=== PATIENT | female | born 1945 | race Caucasian/White ===

== ENCOUNTER 2017-01-04 19:33 | Inpatient (IN) | payer MEDICAID, MEDICARE ==
[~2017-01-04] VITALS: Ht 160 cm; Wt 40.8 kg
[2017-01-04 19:35] VITALS: BP_SYST 102
[2017-01-04] MEDS ORDERED: NACL 0.9% 1,000 ML IV ONE (20:35)
[2017-01-04 21:10] LABS: HEMATOCRIT 32.1 % (36-48); HEMOGLOBIN 10.7 g/dL (12.0-16.0); MEAN CORPUSCULAR HEMOGLOBIN 32 pg (27-31); MEAN CORPUSCULAR HGB CONC 33 % (32-36); MEAN CORPUSCULAR VOLUME 96 fL (79.0-98.0); PLATELET COUNT (AUTO) 268 K/uL (130-430); RED BLOOD CELL COUNT(AUTO) 3.36 MIL/uL (4.2-6.2); RED CELL DISTRIBUTION WIDTH 14.7 % (9.0-15.0)
[2017-01-04 21:30] LABS: CALCIUM 9.6 mg/dL (8.4-11.0); CREATININE 1.22 mg/dL (0.55-1.30); POTASSIUM 4.7 mmol/L (3.5-5.1)
[2017-01-04 21:38] LABS: ALBUMIN 3.4 g/dL (3.4-4.8); TOTAL BILIRUBIN 0.2 mg/dL (0.0-1.0)
[2017-01-04 21:39] LABS: ATYPICAL LYMPHOCYTES % 0 % (0-0); BAND % (MANUAL) 0 % (0-6); BASOPHILS % (MANUAL) 0 % (0-2); EOSINOPHILS % (MANUAL) 0 % (0-7); LYMPHOCYTES % (MANUAL) 3 % (20-46); MONOCYTES % (MANUAL) 1 % (0-11)
[2017-01-04] MEDS ORDERED: NS 500 ML IV ONE (21:45)
[2017-01-04 21:47] LABS: INR 1.1 (0.8-1.2); PROTHROMBIN TIME 11.5 SECS (9.5-12.5)
[2017-01-04] MEDS ORDERED: ACET-2165 PO (22:49)
[2017-01-04] MEDS ORDERED: ASCO500T20 PO (22:51)
[2017-01-04] MEDS ORDERED: BACL10TA PO ×2 (22:52→22:53)
[2017-01-04] MEDS ORDERED: DULR10 RC (22:54)
[2017-01-04] MEDS ORDERED: CARB1TAB21 PO (22:56)
[2017-01-04] MEDS ORDERED: DILT120C89 PO (22:57)
[2017-01-04] MEDS ORDERED: DOCU-144 PO (22:58)
[2017-01-04] MEDS ORDERED: VENL75CA PO (22:59)
[2017-01-04] MEDS ORDERED: HEPA500014 SUBCUT (23:00)
[2017-01-04] MEDS ORDERED: HYDR-4037 PO (23:01)
[2017-01-04] MEDS ORDERED: IBUP-1969 PO (23:02)
[2017-01-04] MEDS ORDERED: LACT10SO66 PO (23:03)
[2017-01-04] MEDS ORDERED: MAGN400O4 PO (23:04)
[2017-01-04] MEDS ORDERED: MULT-300 PO (23:05)
[2017-01-04] MEDS ORDERED: PIMA17TA PO (23:07)
[2017-01-04] MEDS ORDERED: ROPI4TAB3 PO (23:09)
[2017-01-04] MEDS ORDERED: FAMO20TA8 PO (23:09)
[2017-01-04] MEDS ORDERED: ALPR0.2583 PO (23:10)
[2017-01-04] MEDS ORDERED: LORazepam 2 MG/ML VIAL (FOR ER USE) IVP ONE (23:45)
[2017-01-05] VITALS (7 sets, daily range): BP systolic 104–127
[2017-01-05] LABS: BILIRUBIN,URINE NEGATIVE (NEGATIVE); BLOOD, URINE 3+ (NEGATIVE); CLARITY/URINE CLOUDY (CLEAR); COLOR,URINE YELLOW (YELLOW); GLUCOSE,URINE NEGATIVE (NEGATIVE); KETONES,URINE NEGATIVE (NEGATIVE); LEUKOCYTE ESTERASE ,URINE 2+ (NEGATIVE); NITRITE, URINE NEGATIVE (NEGATIVE); PH,URINE 5.5 (5.0-8.0); PROTEIN URINE 2+ (NEGATIVE)
[2017-01-05] MEDS ORDERED: KCL 20 mEq in D5/0.45NS 1000mL 1,000 ML IV SCH
[2017-01-05 00:06] LABS: BACTERIA,URINE MODERATE /HPF (None Seen); RBC,URINE >100 /HPF (0-3); WBC,URINE >100 /HPF (0-3)
[2017-01-05 00:14] LABS: BARBITURATE, URINE NEGATIVE (NEG <=200); BENZODIAZEPINE, URINE POSITIVE (NEG <=150); CANNABINOID, URINE NEGATIVE (NEG <=50); COCAINE, URINE NEGATIVE (NEG <=150); METHAMPHETAMINES SCREEN,URINE NEGATIVE (NEG <=500); OPIATE, URINE NEGATIVE (NEG <=100); PHENCYCLIDINE SCREEN,URINE NEGATIVE (NEG <=25); UR TRICYCLIC ANTIDEPRESSANTS NEGATIVE (NEG <=300); URINE AMPHETAMINE NEGATIVE (NEG <=500); URINE METHADONE NEGATIVE (NEG <=200); URINE OXYCODONE SCREEN NEGATIVE (NEG <=100); URINE PROPOXYPHENE SCREEN NEGATIVE (NEG <=300)
[2017-01-05] MEDS ORDERED: CEFEPIME 1 GM/VIAL (MAXIPIME) ONE (01:16)
[2017-01-05] MEDS: CEFEPIME 1 GM in D5W 50 ML IV SCH ×2 (01:27→12:34)
[2017-01-05 06:52] LABS: BASOPHILS % (AUTO) 0.3 % (0.0-2.0); EOSINOPHILS % (AUTO) 0.2 % (0.0-4.0); HEMATOCRIT 27.9 % (36-48); HEMOGLOBIN 9.4 g/dL (12.0-16.0); LYMPHOCYTES % (AUTO) 14.4 % (20.5-51.5); MEAN CORPUSCULAR HEMOGLOBIN 32 pg (27-31); MEAN CORPUSCULAR HGB CONC 34 % (32-36); MEAN CORPUSCULAR VOLUME 95 fL (79.0-98.0); MONOCYTES # (AUTO) 0.3 K/uL (0.0-1.0); MONOCYTES % (AUTO) 4.4 % (1.7-9.3); NEUTROPHILS # (AUTO) 5.4 K/uL (1.8-7.7); NEUTROPHILS % (AUTO) 80.7 % (40.0-70.0); PLATELET COUNT (AUTO) 235 K/uL (130-430); RED BLOOD CELL COUNT(AUTO) 2.94 MIL/uL (4.2-6.2); RED CELL DISTRIBUTION WIDTH 14.7 % (9.0-15.0); WHITE BLOOD COUNT (AUTO) 6.7 K/uL (4.8-10.8)
[2017-01-05 07:21] LABS: ALBUMIN 3.1 g/dL (3.4-4.8); CALCIUM 9.1 mg/dL (8.4-11.0); POTASSIUM 4.4 mmol/L (3.5-5.1); TOTAL BILIRUBIN 0.3 mg/dL (0.0-1.0); TOTAL PROTEIN, SERUM 6.3 g/dL (6.4-8.3)
[2017-01-05] MEDS ORDERED: CARBIDOPA/LEVODOPA 25/100 MG TABLET PO SCH (08:30)
[2017-01-05] MEDS ORDERED: BISACODYL 10 MG/SUPPOSITORY RC PRN (08:30)
[2017-01-05] MEDS ORDERED: MILK OF MAGNESIA 30 ML UDC PO PRN (08:30)
[2017-01-05] MEDS ORDERED: ACETAMINOPHEN 325 MG TABLET PO PRN (08:30)
[2017-01-05] MEDS ORDERED: hydrALAZINE HCL 10 MG TABLET PO PRN (08:30)
[2017-01-05] MEDS ORDERED: LACTULOSE 20 GM/30 ML UDC PO PRN (08:30)
[2017-01-05] MEDS: FAMOTIDINE 20 MG TABLET PO SCH ×2 (10:28→22:12)
[2017-01-05] MEDS: DOCUSATE SODIUM 100 MG CAPSULE PO SCH ×2 (10:29→22:12)
[2017-01-05] MEDS: MULTIVITS,CA,MINERALS/IRON/FA 1 TABLET PO SCH (10:29)
[2017-01-05] MEDS: ASCORBIC ACID 500 MG TABLET PO SCH (10:30)
[2017-01-05] MEDS: BACLOFEN 10 MG TABLET PO PRN (10:30)
[2017-01-05] MEDS: DILTIAZEM HCL 120 MG CAP.SR.24H PO SCH (10:30)
[2017-01-05] MEDS: HEPARIN SODIUM,PORCINE 5000 UNITS/ML VIAL SUBCUT SCH ×2 (10:33→22:10)
[2017-01-05] MEDS ORDERED: LevALBUTEROL HCL 1.25 MG/0.5 ML *CONC.* VIAL.NEB (XOPENEX CONC.) INH PRN (14:45)
[2017-01-05] MEDS ORDERED: LevALBUTEROL HCL 1.25 MG/0.5 ML *CONC.* VIAL.NEB (XOPENEX CONC.) INH SCH (15:00)
[2017-01-05] MEDS: ALPRAZolam 0.25 MG TABLET PO PRN (15:34)
[2017-01-05] MEDS: IBUPROFEN 600 MG TABLET PO PRN (15:34)
[2017-01-05] MEDS ORDERED: LevALBUTEROL HCL 1.25 MG/0.5 ML *CONC.* VIAL.NEB (XOPENEX CONC.) INH ONE (15:42)
[2017-01-05] MEDS: IPRATROPIUM BROM 0.5 MG/2.5 ML VIAL.NEB (ATROVENT) INH SCH (19:00)
[2017-01-05] MEDS: LevALBUTEROL HCL 1.25 MG/0.5 ML *CONC.* VIAL.NEB (XOPENEX CONC.) INH SCH (19:00)
[2017-01-05] MEDS: 0.45% NACL 1,000 ML IV SCH (20:14)
[2017-01-06] MEDS: CEFEPIME 1 GM in D5W 50 ML IV SCH ×2 (00:57→13:52)
[2017-01-06] MEDS: ALPRAZolam 0.25 MG TABLET PO PRN ×3 (00:58→21:51)
[2017-01-06] MEDS: IBUPROFEN 600 MG TABLET PO PRN ×3 (00:58→21:52)
[2017-01-06 02:02] VITALS: BP_SYST 135
[2017-01-06] MEDS: IPRATROPIUM BROM 0.5 MG/2.5 ML VIAL.NEB (ATROVENT) INH SCH ×4 (02:03→20:10)
[2017-01-06] MEDS: LevALBUTEROL HCL 1.25 MG/0.5 ML *CONC.* VIAL.NEB (XOPENEX CONC.) INH SCH ×4 (02:03→20:09)
[2017-01-06 07:16] LABS: BASOPHILS % (AUTO) 0.4 % (0.0-2.0); EOSINOPHILS % (AUTO) 0.7 % (0.0-4.0); HEMATOCRIT 25.4 % (36-48); HEMOGLOBIN 8.6 g/dL (12.0-16.0); LYMPHOCYTES # (AUTO) 1.2 K/uL (1.0-5.5); LYMPHOCYTES % (AUTO) 30.2 % (20.5-51.5); MEAN CORPUSCULAR HEMOGLOBIN 32 pg (27-31); MEAN CORPUSCULAR HGB CONC 34 % (32-36); MEAN CORPUSCULAR VOLUME 94 fL (79.0-98.0); MONOCYTES # (AUTO) 0.2 K/uL (0.0-1.0); MONOCYTES % (AUTO) 4.8 % (1.7-9.3); NEUTROPHILS # (AUTO) 2.7 K/uL (1.8-7.7); NEUTROPHILS % (AUTO) 63.9 % (40.0-70.0); PLATELET COUNT (AUTO) 191 K/uL (130-430); RED BLOOD CELL COUNT(AUTO) 2.71 MIL/uL (4.2-6.2); RED CELL DISTRIBUTION WIDTH 14.6 % (9.0-15.0); WHITE BLOOD COUNT (AUTO) 4.1 K/uL (4.8-10.8)
[2017-01-06 07:25] LABS: CALCIUM 9.1 mg/dL (8.4-11.0); CREATININE 0.93 mg/dL (0.55-1.30); POTASSIUM 3.7 mmol/L (3.5-5.1)
[2017-01-06 08:00] VITALS: BP_SYST 119
[2017-01-06] MEDS: MULTIVITS,CA,MINERALS/IRON/FA 1 TABLET PO SCH (09:58)
[2017-01-06] MEDS: ASCORBIC ACID 500 MG TABLET PO SCH (09:58)
[2017-01-06] MEDS: FAMOTIDINE 20 MG TABLET PO SCH ×2 (09:58→21:51)
[2017-01-06] MEDS: DOCUSATE SODIUM 100 MG CAPSULE PO SCH ×2 (09:58→21:51)
[2017-01-06] MEDS: DILTIAZEM HCL 120 MG CAP.SR.24H PO SCH (09:59)
[2017-01-06] MEDS: 0.45% NACL 1,000 ML IV SCH (10:00)
[2017-01-06] MEDS: HEPARIN SODIUM,PORCINE 5000 UNITS/ML VIAL SUBCUT SCH ×2 (10:04→21:53)
[2017-01-06] MEDS: BALSAM PERU/CASTOR OIL 60 GM OINT...G. TP SCH (10:27)
[2017-01-06 12:59] VITALS: BP_SYST 125
[2017-01-06 16:45] VITALS: BP_SYST 125
[2017-01-06 20:00] VITALS: BP_SYST 139
[2017-01-07] MEDS: CEFEPIME 1 GM in D5W 50 ML IV SCH ×2 (00:30→14:23)
[2017-01-07 00:58] VITALS: BP_SYST 116
[2017-01-07] MEDS: LevALBUTEROL HCL 1.25 MG/0.5 ML *CONC.* VIAL.NEB (XOPENEX CONC.) INH SCH ×4 (01:39→19:58)
[2017-01-07] MEDS: IPRATROPIUM BROM 0.5 MG/2.5 ML VIAL.NEB (ATROVENT) INH SCH ×4 (01:39→19:57)
[2017-01-07 03:43] VITALS: BP_SYST 112
[2017-01-07 07:39] LABS: BASOPHILS % (AUTO) 0.6 % (0.0-2.0); EOSINOPHILS % (AUTO) 0.8 % (0.0-4.0); HEMATOCRIT 25.6 % (36-48); HEMOGLOBIN 8.6 g/dL (12.0-16.0); LYMPHOCYTES # (AUTO) 0.9 K/uL (1.0-5.5); LYMPHOCYTES % (AUTO) 22.7 % (20.5-51.5); MEAN CORPUSCULAR HEMOGLOBIN 32 pg (27-31); MEAN CORPUSCULAR HGB CONC 34 % (32-36); MEAN CORPUSCULAR VOLUME 94 fL (79.0-98.0); MONOCYTES # (AUTO) 0.2 K/uL (0.0-1.0); MONOCYTES % (AUTO) 4.8 % (1.7-9.3); NEUTROPHILS % (AUTO) 71.1 % (40.0-70.0); PLATELET COUNT (AUTO) 192 K/uL (130-430); RED BLOOD CELL COUNT(AUTO) 2.72 MIL/uL (4.2-6.2); RED CELL DISTRIBUTION WIDTH 14.2 % (9.0-15.0); WHITE BLOOD COUNT (AUTO) 4.1 K/uL (4.8-10.8)
[2017-01-07 07:41] LABS: CREATININE 0.94 mg/dL (0.55-1.30); POTASSIUM 3.8 mmol/L (3.5-5.1)
[2017-01-07 08:16] VITALS: BP_SYST 128
[2017-01-07] MEDS: ASCORBIC ACID 500 MG TABLET PO SCH (09:55)
[2017-01-07] MEDS: DILTIAZEM HCL 120 MG CAP.SR.24H PO SCH (09:56)
[2017-01-07] MEDS: DOCUSATE SODIUM 100 MG CAPSULE PO SCH ×2 (09:56→21:28)
[2017-01-07] MEDS: FAMOTIDINE 20 MG TABLET PO SCH ×2 (09:57→21:29)
[2017-01-07] MEDS: MULTIVITS,CA,MINERALS/IRON/FA 1 TABLET PO SCH (09:57)
[2017-01-07] MEDS: BALSAM PERU/CASTOR OIL 60 GM OINT...G. TP SCH (10:01)
[2017-01-07] MEDS: 0.45% NACL 1,000 ML IV SCH (10:02)
[2017-01-07] MEDS: HEPARIN SODIUM,PORCINE 5000 UNITS/ML VIAL SUBCUT SCH ×2 (10:16→21:31)
[2017-01-07] MEDS: ALPRAZolam 0.25 MG TABLET PO PRN ×2 (11:45→21:29)
[2017-01-07] MEDS: VANCOMYCIN HCL 750 MG in NS 250 ML IV SCH (12:22)
[2017-01-07 12:47] VITALS: BP_SYST 119
[2017-01-07] MEDS: CARBIDOPA/LEVODOPA 25/100 MG TABLET PO SCH ×3 (14:20→21:33)
[2017-01-07 16:33] VITALS: BP_SYST 105
[2017-01-07 20:00] VITALS: BP_SYST 116
[2017-01-07] MEDS: IBUPROFEN 600 MG TABLET PO PRN (21:29)
[2017-01-08] VITALS (7 sets, daily range): BP systolic 95–139
[2017-01-08] MEDS: IPRATROPIUM BROM 0.5 MG/2.5 ML VIAL.NEB (ATROVENT) INH SCH ×4 (01:00→19:54)
[2017-01-08] MEDS: LevALBUTEROL HCL 1.25 MG/0.5 ML *CONC.* VIAL.NEB (XOPENEX CONC.) INH SCH ×4 (01:00→19:54)
[2017-01-08] MEDS ORDERED: CEFEPIME 1 GM/VIAL (MAXIPIME) ONE (01:01)
[2017-01-08] MEDS: CEFEPIME 1 GM in D5W 50 ML IV SCH ×2 (01:08→12:00)
[2017-01-08] MEDS: CARBIDOPA/LEVODOPA 25/100 MG TABLET PO SCH ×5 (05:45→21:41)
[2017-01-08 08:01] LABS: BASOPHILS % (AUTO) 0.5 % (0.0-2.0); EOSINOPHILS # (AUTO) 0.1 K/uL (0.0-0.4); EOSINOPHILS % (AUTO) 3.1 % (0.0-4.0); HEMATOCRIT 27.2 % (36-48); HEMOGLOBIN 8.9 g/dL (12.0-16.0); LYMPHOCYTES % (AUTO) 24.9 % (20.5-51.5); MEAN CORPUSCULAR HEMOGLOBIN 32 pg (27-31); MEAN CORPUSCULAR HGB CONC 33 % (32-36); MEAN CORPUSCULAR VOLUME 96 fL (79.0-98.0); MONOCYTES # (AUTO) 0.2 K/uL (0.0-1.0); MONOCYTES % (AUTO) 5.5 % (1.7-9.3); NEUTROPHILS # (AUTO) 2.8 K/uL (1.8-7.7); PLATELET COUNT (AUTO) 208 K/uL (130-430); RED BLOOD CELL COUNT(AUTO) 2.83 MIL/uL (4.2-6.2); RED CELL DISTRIBUTION WIDTH 14.3 % (9.0-15.0); WHITE BLOOD COUNT (AUTO) 4.1 K/uL (4.8-10.8)
[2017-01-08 08:06] LABS: CALCIUM 9.2 mg/dL (8.4-11.0); CREATININE 0.79 mg/dL (0.55-1.30); POTASSIUM 3.8 mmol/L (3.5-5.1)
[2017-01-08] MEDS: ASCORBIC ACID 500 MG TABLET PO SCH (09:07)
[2017-01-08] MEDS: MULTIVITS,CA,MINERALS/IRON/FA 1 TABLET PO SCH (09:07)
[2017-01-08] MEDS: FAMOTIDINE 20 MG TABLET PO SCH ×2 (09:07→21:41)
[2017-01-08] MEDS: DOCUSATE SODIUM 100 MG CAPSULE PO SCH ×2 (09:08→21:41)
[2017-01-08] MEDS: DILTIAZEM HCL 120 MG CAP.SR.24H PO SCH (09:09)
[2017-01-08] MEDS: ALPRAZolam 0.25 MG TABLET PO PRN ×2 (09:15→18:20)
[2017-01-08] MEDS: BACLOFEN 10 MG TABLET PO PRN (09:15)
[2017-01-08] MEDS: IBUPROFEN 600 MG TABLET PO PRN ×2 (09:16→18:20)
[2017-01-08] MEDS: BALSAM PERU/CASTOR OIL 60 GM OINT...G. TP SCH (09:34)
[2017-01-08] MEDS: HEPARIN SODIUM,PORCINE 5000 UNITS/ML VIAL SUBCUT SCH ×2 (09:39→21:41)
[2017-01-08] MEDS: 0.45% NACL 1,000 ML IV SCH (12:38)
[2017-01-08] MEDS: VANCOMYCIN HCL 750 MG in NS 250 ML IV SCH (12:38)
[2017-01-09] VITALS: BP_SYST 120
[2017-01-09] MEDS: IPRATROPIUM BROM 0.5 MG/2.5 ML VIAL.NEB (ATROVENT) INH SCH ×4 (00:05→20:18)
[2017-01-09] MEDS: LevALBUTEROL HCL 1.25 MG/0.5 ML *CONC.* VIAL.NEB (XOPENEX CONC.) INH SCH ×4 (00:05→20:18)
[2017-01-09] MEDS: CEFEPIME 1 GM in D5W 50 ML IV SCH ×2 (01:11→14:24)
[2017-01-09] MEDS: ALPRAZolam 0.25 MG TABLET PO PRN ×2 (02:31→15:46)
[2017-01-09] MEDS: IBUPROFEN 600 MG TABLET PO PRN (02:31)
[2017-01-09 04:23] VITALS: BP_SYST 90
[2017-01-09] MEDS: CARBIDOPA/LEVODOPA 25/100 MG TABLET PO SCH ×5 (05:51→23:50)
[2017-01-09] MEDS: ASCORBIC ACID 500 MG TABLET PO SCH (10:00)
[2017-01-09] MEDS: DILTIAZEM HCL 120 MG CAP.SR.24H PO SCH (10:01)
[2017-01-09] MEDS: DOCUSATE SODIUM 100 MG CAPSULE PO SCH ×2 (10:02→23:49)
[2017-01-09] MEDS: MULTIVITS,CA,MINERALS/IRON/FA 1 TABLET PO SCH (10:02)
[2017-01-09] MEDS: FAMOTIDINE 20 MG TABLET PO SCH ×2 (10:02→23:49)
[2017-01-09] MEDS: LACTOBACILLUS RHAMNOSUS GG 1 CAP CAPSULE PO SCH ×2 (10:03→23:49)
[2017-01-09] MEDS: 0.45% NACL 1,000 ML IV SCH (10:04)
[2017-01-09] MEDS: HEPARIN SODIUM,PORCINE 5000 UNITS/ML VIAL SUBCUT SCH ×2 (10:05→23:54)
[2017-01-09] MEDS: BALSAM PERU/CASTOR OIL 60 GM OINT...G. TP SCH (10:06)
[2017-01-09] MEDS: VANCOMYCIN HCL 750 MG in NS 250 ML IV SCH (12:50)
[2017-01-09 12:53] VITALS: BP_SYST 116
[2017-01-09 16:35] VITALS: BP_SYST 109
[2017-01-09 20:00] VITALS: BP_SYST 125
[2017-01-09] MEDS: BACLOFEN 10 MG TABLET PO PRN (23:49)
[2017-01-10 00:50] VITALS: BP_SYST 147
[2017-01-10] MEDS: IPRATROPIUM BROM 0.5 MG/2.5 ML VIAL.NEB (ATROVENT) INH SCH ×4 (01:00→20:15)
[2017-01-10] MEDS: LevALBUTEROL HCL 1.25 MG/0.5 ML *CONC.* VIAL.NEB (XOPENEX CONC.) INH SCH ×4 (01:00→20:15)
[2017-01-10] MEDS: CEFEPIME 1 GM in D5W 50 ML IV SCH (01:39)
[2017-01-10 04:00] VITALS: BP_SYST 142
[2017-01-10 08:01] LABS: CALCIUM 9.5 mg/dL (8.4-11.0); CREATININE 0.86 mg/dL (0.55-1.30); POTASSIUM 3.9 mmol/L (3.5-5.1)
[2017-01-10 08:03] LABS: BASOPHILS % (AUTO) 0.5 % (0.0-2.0); EOSINOPHILS # (AUTO) 0.1 K/uL (0.0-0.4); EOSINOPHILS % (AUTO) 1.5 % (0.0-4.0); HEMATOCRIT 28.8 % (36-48); HEMOGLOBIN 9.8 g/dL (12.0-16.0); LYMPHOCYTES # (AUTO) 1.1 K/uL (1.0-5.5); LYMPHOCYTES % (AUTO) 21.7 % (20.5-51.5); MEAN CORPUSCULAR HEMOGLOBIN 32 pg (27-31); MEAN CORPUSCULAR HGB CONC 34 % (32-36); MEAN CORPUSCULAR VOLUME 95 fL (79.0-98.0); MONOCYTES # (AUTO) 0.2 K/uL (0.0-1.0); MONOCYTES % (AUTO) 4.6 % (1.7-9.3); NEUTROPHILS # (AUTO) 3.5 K/uL (1.8-7.7); NEUTROPHILS % (AUTO) 71.7 % (40.0-70.0); PLATELET COUNT (AUTO) 247 K/uL (130-430); RED BLOOD CELL COUNT(AUTO) 3.04 MIL/uL (4.2-6.2); RED CELL DISTRIBUTION WIDTH 14.2 % (9.0-15.0); WHITE BLOOD COUNT (AUTO) 4.9 K/uL (4.8-10.8)
[2017-01-10 08:15] VITALS: BP_SYST 131
[2017-01-10] MEDS: ASCORBIC ACID 500 MG TABLET PO SCH (09:42)
[2017-01-10] MEDS: DOCUSATE SODIUM 100 MG CAPSULE PO SCH ×2 (09:42→21:44)
[2017-01-10] MEDS: BACLOFEN 10 MG TABLET PO PRN ×2 (09:42→17:50)
[2017-01-10] MEDS: MULTIVITS,CA,MINERALS/IRON/FA 1 TABLET PO SCH (09:42)
[2017-01-10] MEDS: FAMOTIDINE 20 MG TABLET PO SCH ×2 (09:42→21:43)
[2017-01-10] MEDS: DILTIAZEM HCL 120 MG CAP.SR.24H PO SCH (09:44)
[2017-01-10] MEDS: LACTOBACILLUS RHAMNOSUS GG 1 CAP CAPSULE PO SCH ×2 (09:44→21:43)
[2017-01-10] MEDS: HEPARIN SODIUM,PORCINE 5000 UNITS/ML VIAL SUBCUT SCH ×2 (09:47→22:00)
[2017-01-10] MEDS: CARBIDOPA/LEVODOPA 25/100 MG TABLET PO SCH ×4 (09:48→21:43)
[2017-01-10] MEDS: BALSAM PERU/CASTOR OIL 60 GM OINT...G. TP SCH (09:48)
[2017-01-10] MEDS ORDERED: COMMUNICATION ORDER XX ONE (10:15)
[2017-01-10 12:00] VITALS: BP_SYST 103
[2017-01-10] MEDS: VANCOMYCIN HCL 750 MG in NS 250 ML IV SCH (12:32)
[2017-01-10 14:10] LABS: INR 1.1 (0.8-1.2); PROTHROMBIN TIME 11.5 SECS (9.5-12.5)
[2017-01-10 16:00] VITALS: BP_SYST 113
[2017-01-10] MEDS: ALPRAZolam 0.25 MG TABLET PO PRN (17:50)
[2017-01-10 20:00] VITALS: BP_SYST 110
[2017-01-10] MEDS: COLISTIMETHATE SODIUM 75 MG in NS 50 ML IV SCH (21:42)
[2017-01-10] MEDS: 0.45% NACL 1,000 ML IV SCH (22:30)
[2017-01-11] VITALS (7 sets, daily range): BP systolic 99–144
[2017-01-11] MEDS: LevALBUTEROL HCL 1.25 MG/0.5 ML *CONC.* VIAL.NEB (XOPENEX CONC.) INH SCH ×4 (01:17→20:59)
[2017-01-11] MEDS: IPRATROPIUM BROM 0.5 MG/2.5 ML VIAL.NEB (ATROVENT) INH SCH ×4 (01:17→20:58)
[2017-01-11] MEDS: BACLOFEN 10 MG TABLET PO PRN (04:09)
[2017-01-11] MEDS: IBUPROFEN 600 MG TABLET PO PRN (04:10)
[2017-01-11] MEDS: traMADol HCL HCL 50 MG TABLET (ULTRAM) PO PRN ×2 (04:57→13:18)
[2017-01-11] MEDS: CARBIDOPA/LEVODOPA 25/100 MG TABLET PO SCH ×5 (06:38→21:00)
[2017-01-11] MEDS: HEPARIN SODIUM,PORCINE 5000 UNITS/ML VIAL SUBCUT SCH ×2 (09:29→21:00)
[2017-01-11] MEDS: DILTIAZEM HCL 120 MG CAP.SR.24H PO SCH (09:30)
[2017-01-11] MEDS: LACTOBACILLUS RHAMNOSUS GG 1 CAP CAPSULE PO SCH ×2 (09:30→21:00)
[2017-01-11] MEDS: MULTIVITS,CA,MINERALS/IRON/FA 1 TABLET PO SCH (09:31)
[2017-01-11] MEDS: FAMOTIDINE 20 MG TABLET PO SCH ×2 (09:31→21:00)
[2017-01-11] MEDS: COLISTIMETHATE SODIUM 75 MG in NS 50 ML IV SCH ×2 (09:31→21:00)
[2017-01-11] MEDS: BALSAM PERU/CASTOR OIL 60 GM OINT...G. TP SCH (09:31)
[2017-01-11] MEDS: DOCUSATE SODIUM 100 MG CAPSULE PO SCH ×2 (09:31→21:00)
[2017-01-11] MEDS: ASCORBIC ACID 500 MG TABLET PO SCH (09:31)
[2017-01-11] MEDS: 0.45% NACL 1,000 ML IV SCH (09:32)
[2017-01-11] MEDS: VANCOMYCIN HCL 750 MG in NS 250 ML IV SCH (11:11)
[2017-01-11] MEDS: ALPRAZolam 0.25 MG TABLET PO PRN (22:37)
[2017-01-12 00:24] VITALS: BP_SYST 124
[2017-01-12] MEDS: IPRATROPIUM BROM 0.5 MG/2.5 ML VIAL.NEB (ATROVENT) INH SCH ×5 (02:57→23:58)
[2017-01-12] MEDS: LevALBUTEROL HCL 1.25 MG/0.5 ML *CONC.* VIAL.NEB (XOPENEX CONC.) INH SCH ×5 (02:58→23:58)
[2017-01-12 04:00] VITALS: BP_SYST 143
[2017-01-12] MEDS: 0.45% NACL 1,000 ML IV SCH (06:00)
[2017-01-12] MEDS: CARBIDOPA/LEVODOPA 25/100 MG TABLET PO SCH ×4 (06:00→22:08)
[2017-01-12 08:37] VITALS: BP_SYST 144
[2017-01-12] MEDS: LACTOBACILLUS RHAMNOSUS GG 1 CAP CAPSULE PO SCH ×2 (10:32→20:53)
[2017-01-12] MEDS: DILTIAZEM HCL 120 MG CAP.SR.24H PO SCH (10:33)
[2017-01-12] MEDS: DOCUSATE SODIUM 100 MG CAPSULE PO SCH ×2 (10:33→20:54)
[2017-01-12] MEDS: ASCORBIC ACID 500 MG TABLET PO SCH (10:33)
[2017-01-12] MEDS: FAMOTIDINE 20 MG TABLET PO SCH ×2 (10:33→20:53)
[2017-01-12] MEDS: ALPRAZolam 0.25 MG TABLET PO PRN (10:35)
[2017-01-12] MEDS: MULTIVITS,CA,MINERALS/IRON/FA 1 TABLET PO SCH (10:35)
[2017-01-12] MEDS: traMADol HCL HCL 50 MG TABLET (ULTRAM) PO PRN (10:36)
[2017-01-12] MEDS: HEPARIN SODIUM,PORCINE 5000 UNITS/ML VIAL SUBCUT SCH ×2 (10:39→21:00)
[2017-01-12] MEDS: COLISTIMETHATE SODIUM 75 MG in NS 50 ML IV SCH ×2 (11:14→22:08)
[2017-01-12] MEDS: VANCOMYCIN HCL 750 MG in NS 250 ML IV SCH (11:49)
[2017-01-12 12:52] VITALS: BP_SYST 115
[2017-01-12] MEDS: BALSAM PERU/CASTOR OIL 60 GM OINT...G. TP SCH (17:08)
[2017-01-12] MEDS: BACLOFEN 10 MG TABLET PO PRN (17:23)
[2017-01-12 17:49] VITALS: BP_SYST 124
[2017-01-12] MEDS ORDERED: ALPRAZolam 0.25 MG TABLET PO PRN (18:00)
[2017-01-12] MEDS ORDERED: traMADol HCL HCL 50 MG TABLET (ULTRAM) PO PRN (18:00)
[2017-01-12] MEDS ORDERED: COMMUNICATION ORDER XX ONE (20:15)
[2017-01-12 20:48] VITALS: BP_SYST 129
[2017-01-12 20:53] LABS: EOSINOPHILS # (AUTO) 0.1 K/uL (0.0-0.4); MONOCYTES # (AUTO) 0.3 K/uL (0.0-1.0); RED BLOOD CELL COUNT(AUTO) 2.61 MIL/uL (4.2-6.2)
[2017-01-12 20:54] LABS: PROTHROMBIN TIME 11.3 SECS (9.5-12.5)
[2017-01-12 20:56] LABS: BASOPHILS # (AUTO) 0.1 K/uL (0.0-0.2); BASOPHILS % (AUTO) 1.8 % (0.0-2.0); HEMATOCRIT 24.6 % (36-48); HEMOGLOBIN 8.2 g/dL (12.0-16.0); LYMPHOCYTES # (AUTO) 1.2 K/uL (1.0-5.5); MEAN CORPUSCULAR HEMOGLOBIN 32 pg (27-31); MEAN CORPUSCULAR HGB CONC 34 % (32-36); MEAN CORPUSCULAR VOLUME 94 fL (79.0-98.0); NEUTROPHILS # (AUTO) 3.6 K/uL (1.8-7.7); NEUTROPHILS % (AUTO) 68.2 % (40.0-70.0); PLATELET COUNT (AUTO) 231 K/uL (130-430); RED CELL DISTRIBUTION WIDTH 13.8 % (9.0-15.0); WHITE BLOOD COUNT (AUTO) 5.3 K/uL (4.8-10.8)
[2017-01-13] VITALS (7 sets, daily range): BP systolic 114–142
[2017-01-13] MEDS: CARBIDOPA/LEVODOPA 25/100 MG TABLET PO SCH ×3 (06:00→15:13)
[2017-01-13] MEDS: IPRATROPIUM BROM 0.5 MG/2.5 ML VIAL.NEB (ATROVENT) INH SCH ×3 (07:00→19:34)
[2017-01-13] MEDS ORDERED: CEFAZOLIN 1 GM IVPB PREMIX 50 ML IV SCH (07:00)
[2017-01-13] MEDS: LevALBUTEROL HCL 1.25 MG/0.5 ML *CONC.* VIAL.NEB (XOPENEX CONC.) INH SCH ×3 (07:00→19:34)
[2017-01-13] MEDS: 0.45% NACL 1,000 ML IV SCH (07:05)
[2017-01-13] MEDS ORDERED: SIMETHICONE 40 MG/0.6 ML ML ONE (07:34)
[2017-01-13] MEDS ORDERED: fentaNYL CITRATE/PF 100 MCG/2 ML AMP ONE (07:35)
[2017-01-13] MEDS ORDERED: MIDAZOLAM HCL 5 MG/5 ML VIAL ONE (07:43)
[2017-01-13] MEDS ORDERED: CEFAZOLIN 1 GM IVPB PREMIX 50 ML IV ONE (07:43)
[2017-01-13 07:52] LABS: BASOPHILS % (AUTO) 0.8 % (0.0-2.0); EOSINOPHILS # (AUTO) 0.2 K/uL (0.0-0.4); EOSINOPHILS % (AUTO) 5.2 % (0.0-4.0); HEMATOCRIT 25.9 % (36-48); HEMOGLOBIN 8.4 g/dL (12.0-16.0); LYMPHOCYTES # (AUTO) 1.1 K/uL (1.0-5.5); LYMPHOCYTES % (AUTO) 28.3 % (20.5-51.5); MEAN CORPUSCULAR HEMOGLOBIN 31 pg (27-31); MEAN CORPUSCULAR HGB CONC 32 % (32-36); MEAN CORPUSCULAR VOLUME 95 fL (79.0-98.0); MONOCYTES # (AUTO) 0.2 K/uL (0.0-1.0); MONOCYTES % (AUTO) 5.8 % (1.7-9.3); NEUTROPHILS # (AUTO) 2.5 K/uL (1.8-7.7); NEUTROPHILS % (AUTO) 59.9 % (40.0-70.0); PLATELET COUNT (AUTO) 216 K/uL (130-430); RED BLOOD CELL COUNT(AUTO) 2.72 MIL/uL (4.2-6.2); RED CELL DISTRIBUTION WIDTH 14.2 % (9.0-15.0)
[2017-01-13 07:59] LABS: INR 1.1 (0.8-1.2); PROTHROMBIN TIME 11.5 SECS (9.5-12.5)
[2017-01-13 08:06] LABS: ALBUMIN 2.7 g/dL (3.4-4.8); CALCIUM 9.6 mg/dL (8.4-11.0); CREATININE 1.32 mg/dL (0.55-1.30); POTASSIUM 3.8 mmol/L (3.5-5.1); TOTAL BILIRUBIN 0.4 mg/dL (0.0-1.0); TOTAL PROTEIN, SERUM 5.7 g/dL (6.4-8.3)
[2017-01-13] MEDS: ASCORBIC ACID 500 MG TABLET PO SCH (09:00)
[2017-01-13] MEDS: FAMOTIDINE 20 MG TABLET PO SCH (09:00)
[2017-01-13] MEDS: MULTIVITS,CA,MINERALS/IRON/FA 1 TABLET PO SCH (09:00)
[2017-01-13] MEDS: LACTOBACILLUS RHAMNOSUS GG 1 CAP CAPSULE PO SCH (09:00)
[2017-01-13] MEDS: DOCUSATE SODIUM 100 MG CAPSULE PO SCH ×2 (09:00→21:00)
[2017-01-13] MEDS: DILTIAZEM HCL 120 MG CAP.SR.24H PO SCH (09:00)
[2017-01-13] MEDS: HEPARIN SODIUM,PORCINE 5000 UNITS/ML VIAL SUBCUT SCH ×2 (09:00→21:44)
[2017-01-13] MEDS: COLISTIMETHATE SODIUM 75 MG in NS 50 ML IV SCH ×2 (09:51→21:41)
[2017-01-13] MEDS: BALSAM PERU/CASTOR OIL 60 GM OINT...G. TP SCH (09:51)
[2017-01-13] MEDS: VANCOMYCIN HCL 750 MG in NS 250 ML IV SCH (11:44)
[2017-01-13] MEDS ORDERED: MILK OF MAGNESIA 30 ML UDC GT PRN (20:00)
[2017-01-13] MEDS ORDERED: hydrALAZINE HCL 10 MG TABLET GT PRN (20:00)
[2017-01-13] MEDS ORDERED: ACETAMINOPHEN 650 MG/20.3 ML UDC PO PRN (21:00)
[2017-01-13] MEDS ORDERED: IBUPROFEN 100 MG/5 ML UDC GT PRN (21:00)
[2017-01-13] MEDS: LACTOBACILLUS RHAMNOSUS GG 1 CAP CAPSULE GT SCH (21:41)
[2017-01-13] MEDS: FAMOTIDINE 20 MG TABLET GT SCH (21:41)
[2017-01-13] MEDS: CARBIDOPA/LEVODOPA 25/100 MG TABLET GT SCH (21:42)
[2017-01-14] VITALS (7 sets, daily range): BP systolic 104–166
[2017-01-14] MEDS: IPRATROPIUM BROM 0.5 MG/2.5 ML VIAL.NEB (ATROVENT) INH SCH ×4 (01:20→19:45)
[2017-01-14] MEDS: LevALBUTEROL HCL 1.25 MG/0.5 ML *CONC.* VIAL.NEB (XOPENEX CONC.) INH SCH ×4 (01:20→19:45)
[2017-01-14] MEDS: 0.45% NACL 1,000 ML IV SCH ×2 (01:28→20:38)
[2017-01-14] MEDS: LACTULOSE 20 GM/30 ML UDC GT PRN (06:09)
[2017-01-14] MEDS: CARBIDOPA/LEVODOPA 25/100 MG TABLET GT SCH ×5 (06:09→21:28)
[2017-01-14 08:12] LABS: BASOPHILS % (AUTO) 0.4 % (0.0-2.0); EOSINOPHILS # (AUTO) 0.2 K/uL (0.0-0.4); EOSINOPHILS % (AUTO) 2.8 % (0.0-4.0); HEMATOCRIT 26.4 % (36-48); HEMOGLOBIN 8.8 g/dL (12.0-16.0); LYMPHOCYTES # (AUTO) 0.8 K/uL (1.0-5.5); LYMPHOCYTES % (AUTO) 13.1 % (20.5-51.5); MEAN CORPUSCULAR HEMOGLOBIN 32 pg (27-31); MEAN CORPUSCULAR HGB CONC 33 % (32-36); MEAN CORPUSCULAR VOLUME 96 fL (79.0-98.0); MONOCYTES # (AUTO) 0.2 K/uL (0.0-1.0); MONOCYTES % (AUTO) 3.7 % (1.7-9.3); NEUTROPHILS # (AUTO) 5.3 K/uL (1.8-7.7); PLATELET COUNT (AUTO) 206 K/uL (130-430); RED BLOOD CELL COUNT(AUTO) 2.75 MIL/uL (4.2-6.2); RED CELL DISTRIBUTION WIDTH 13.6 % (9.0-15.0); WHITE BLOOD COUNT (AUTO) 6.5 K/uL (4.8-10.8)
[2017-01-14 08:25] LABS: CALCIUM 9.5 mg/dL (8.4-11.0); CREATININE 1.69 mg/dL (0.55-1.30); POTASSIUM 3.7 mmol/L (3.5-5.1)
[2017-01-14] MEDS: DOCUSATE SODIUM 100 MG CAPSULE PO SCH ×2 (09:59→21:00)
[2017-01-14] MEDS: MULTIVITS,CA,MINERALS/IRON/FA 1 TABLET GT SCH (10:00)
[2017-01-14] MEDS: DILTIAZEM HCL 120 MG CAP.SR.24H PO SCH (10:00)
[2017-01-14] MEDS: Effexor 37.5 MG TAB GT SCH ×2 (10:00→20:39)
[2017-01-14] MEDS: FAMOTIDINE 20 MG TABLET GT SCH ×2 (10:00→20:39)
[2017-01-14] MEDS: LACTOBACILLUS RHAMNOSUS GG 1 CAP CAPSULE GT SCH ×2 (10:01→20:38)
[2017-01-14] MEDS: COLISTIMETHATE SODIUM 75 MG in NS 50 ML IV SCH ×2 (10:01→20:38)
[2017-01-14] MEDS: ASCORBIC ACID 500 MG TABLET GT SCH (10:01)
[2017-01-14] MEDS: HEPARIN SODIUM,PORCINE 5000 UNITS/ML VIAL SUBCUT SCH ×2 (10:04→20:41)
[2017-01-14] MEDS: BALSAM PERU/CASTOR OIL 60 GM OINT...G. TP SCH (10:06)
[2017-01-14] MEDS: ALPRAZolam 0.25 MG TABLET GT PRN ×2 (10:17→18:34)
[2017-01-14] MEDS: VANCOMYCIN HCL 750 MG in NS 250 ML IV SCH (12:30)
[2017-01-14] MEDS: traMADol HCL HCL 50 MG TABLET (ULTRAM) GT PRN (18:34)
[2017-01-15] MEDS: LevALBUTEROL HCL 1.25 MG/0.5 ML *CONC.* VIAL.NEB (XOPENEX CONC.) INH SCH ×4 (00:31→19:56)
[2017-01-15] MEDS: IPRATROPIUM BROM 0.5 MG/2.5 ML VIAL.NEB (ATROVENT) INH SCH ×4 (00:31→19:56)
[2017-01-15 03:47] VITALS: BP_SYST 122
[2017-01-15] MEDS: CARBIDOPA/LEVODOPA 25/100 MG TABLET GT SCH ×5 (05:29→22:15)
[2017-01-15 08:00] VITALS: BP_SYST 116
[2017-01-15 08:54] LABS: CALCIUM 9.1 mg/dL (8.4-11.0); CREATININE 1.72 mg/dL (0.55-1.30); POTASSIUM 4.3 mmol/L (3.5-5.1)
[2017-01-15] MEDS: BALSAM PERU/CASTOR OIL 60 GM OINT...G. TP SCH (09:00)
[2017-01-15] MEDS: HEPARIN SODIUM,PORCINE 5000 UNITS/ML VIAL SUBCUT SCH ×2 (09:49→21:00)
[2017-01-15] MEDS: LACTOBACILLUS RHAMNOSUS GG 1 CAP CAPSULE GT SCH ×2 (09:56→22:15)
[2017-01-15] MEDS: MULTIVITS,CA,MINERALS/IRON/FA 1 TABLET GT SCH (09:56)
[2017-01-15] MEDS: ASCORBIC ACID 500 MG TABLET GT SCH (09:56)
[2017-01-15] MEDS: Effexor 37.5 MG TAB GT SCH ×2 (09:57→22:15)
[2017-01-15] MEDS: FAMOTIDINE 20 MG TABLET GT SCH ×2 (09:58→22:15)
[2017-01-15] MEDS ORDERED: NS 500 ML IV ONE (10:00)
[2017-01-15] MEDS: DOCUSATE SODIUM 100 MG CAPSULE PO SCH ×2 (12:16→21:00)
[2017-01-15] MEDS: DILTIAZEM HCL 120 MG CAP.SR.24H PO SCH (12:17)
[2017-01-15 14:07] VITALS: BP_SYST 116
[2017-01-15] MEDS: 0.45% NACL 1,000 ML IV SCH ×2 (15:10→16:40)
[2017-01-15 17:16] VITALS: BP_SYST 118
[2017-01-15] MEDS: COLISTIMETHATE SODIUM 75 MG in NS 50 ML IV SCH ×2 (17:55→22:14)
[2017-01-15 22:26] VITALS: BP_SYST 111
[2017-01-16] VITALS: BP_SYST 101
[2017-01-16] MEDS: LevALBUTEROL HCL 1.25 MG/0.5 ML *CONC.* VIAL.NEB (XOPENEX CONC.) INH SCH ×4 (00:10→20:04)
[2017-01-16] MEDS: IPRATROPIUM BROM 0.5 MG/2.5 ML VIAL.NEB (ATROVENT) INH SCH ×4 (00:10→20:04)
[2017-01-16] MEDS: CARBIDOPA/LEVODOPA 25/100 MG TABLET GT SCH ×5 (05:34→21:17)
[2017-01-16] MEDS: 0.45% NACL 1,000 ML IV SCH ×3 (05:45→17:52)
[2017-01-16 07:31] LABS: BASOPHILS % (AUTO) 0.4 % (0.0-2.0); EOSINOPHILS # (AUTO) 0.3 K/uL (0.0-0.4); EOSINOPHILS % (AUTO) 5.6 % (0.0-4.0); HEMATOCRIT 24.2 % (36-48); HEMOGLOBIN 8.1 g/dL (12.0-16.0); LYMPHOCYTES # (AUTO) 1.1 K/uL (1.0-5.5); LYMPHOCYTES % (AUTO) 21.3 % (20.5-51.5); MEAN CORPUSCULAR HEMOGLOBIN 32 pg (27-31); MEAN CORPUSCULAR HGB CONC 34 % (32-36); MEAN CORPUSCULAR VOLUME 95 fL (79.0-98.0); MONOCYTES # (AUTO) 0.2 K/uL (0.0-1.0); NEUTROPHILS # (AUTO) 3.3 K/uL (1.8-7.7); NEUTROPHILS % (AUTO) 67.7 % (40.0-70.0); PLATELET COUNT (AUTO) 179 K/uL (130-430); RED BLOOD CELL COUNT(AUTO) 2.55 MIL/uL (4.2-6.2); RED CELL DISTRIBUTION WIDTH 13.4 % (9.0-15.0); WHITE BLOOD COUNT (AUTO) 4.9 K/uL (4.8-10.8)
[2017-01-16 07:43] LABS: CALCIUM 9.1 mg/dL (8.4-11.0); CREATININE 1.87 mg/dL (0.55-1.30); POTASSIUM 4.5 mmol/L (3.5-5.1)
[2017-01-16 08:20] VITALS: BP_SYST 123
[2017-01-16] MEDS: FAMOTIDINE 20 MG TABLET GT SCH ×2 (09:07→21:18)
[2017-01-16] MEDS: LACTOBACILLUS RHAMNOSUS GG 1 CAP CAPSULE GT SCH ×2 (09:07→21:17)
[2017-01-16] MEDS: MULTIVITS,CA,MINERALS/IRON/FA 1 TABLET GT SCH (09:07)
[2017-01-16] MEDS: ASCORBIC ACID 500 MG TABLET GT SCH (09:10)
[2017-01-16] MEDS: DOCUSATE SODIUM 100 MG CAPSULE PO SCH ×2 (09:10→21:18)
[2017-01-16] MEDS: DILTIAZEM HCL 120 MG CAP.SR.24H PO SCH (09:10)
[2017-01-16] MEDS: COLISTIMETHATE SODIUM 75 MG in NS 50 ML IV SCH (09:11)
[2017-01-16] MEDS: BALSAM PERU/CASTOR OIL 60 GM OINT...G. TP SCH (09:12)
[2017-01-16] MEDS: HEPARIN SODIUM,PORCINE 5000 UNITS/ML VIAL SUBCUT SCH ×2 (09:14→21:19)
[2017-01-16] MEDS: Effexor 37.5 MG TAB GT SCH ×2 (09:20→21:18)
[2017-01-16 12:48] VITALS: BP_SYST 124
[2017-01-16] MEDS: traMADol HCL HCL 50 MG TABLET (ULTRAM) GT PRN (14:48)
[2017-01-16 17:07] VITALS: BP_SYST 121
[2017-01-16] MEDS: ALPRAZolam 0.25 MG TABLET GT PRN (18:01)
[2017-01-16 20:00] VITALS: BP_SYST 119
[2017-01-16] MEDS ORDERED: COLISTIMETHATE SODIUM 75 MG in NS 50 ML IV SCH (21:00)
[2017-01-16] MEDS: NITROFURANTOIN MONOHYD/M-CRYST 100 MG CAPSULE PO SCH (21:18)
[2017-01-17] VITALS (7 sets, daily range): BP systolic 106–155
[2017-01-17] MEDS: IPRATROPIUM BROM 0.5 MG/2.5 ML VIAL.NEB (ATROVENT) INH SCH ×4 (01:17→19:57)
[2017-01-17] MEDS: LevALBUTEROL HCL 1.25 MG/0.5 ML *CONC.* VIAL.NEB (XOPENEX CONC.) INH SCH ×4 (01:18→19:57)
[2017-01-17] MEDS: 0.45% NACL 1,000 ML IV SCH ×3 (03:09→17:17)
[2017-01-17] MEDS: CARBIDOPA/LEVODOPA 25/100 MG TABLET GT SCH ×5 (05:08→23:25)
[2017-01-17 06:43] LABS: BASOPHILS % (AUTO) 0.3 % (0.0-2.0); EOSINOPHILS # (AUTO) 0.2 K/uL (0.0-0.4); EOSINOPHILS % (AUTO) 5.2 % (0.0-4.0); HEMATOCRIT 24.2 % (36-48); LYMPHOCYTES # (AUTO) 0.8 K/uL (1.0-5.5); LYMPHOCYTES % (AUTO) 20.2 % (20.5-51.5); MEAN CORPUSCULAR HEMOGLOBIN 32 pg (27-31); MEAN CORPUSCULAR HGB CONC 33 % (32-36); MEAN CORPUSCULAR VOLUME 97 fL (79.0-98.0); MONOCYTES # (AUTO) 0.2 K/uL (0.0-1.0); MONOCYTES % (AUTO) 5.3 % (1.7-9.3); PLATELET COUNT (AUTO) 181 K/uL (130-430); RED CELL DISTRIBUTION WIDTH 13.6 % (9.0-15.0); WHITE BLOOD COUNT (AUTO) 4.2 K/uL (4.8-10.8)
[2017-01-17 06:44] LABS: ALBUMIN 2.6 g/dL (3.4-4.8); CALCIUM 9.1 mg/dL (8.4-11.0); CREATININE 2.19 mg/dL (0.55-1.30); POTASSIUM 4.1 mmol/L (3.5-5.1); TOTAL BILIRUBIN 0.3 mg/dL (0.0-1.0); TOTAL PROTEIN, SERUM 5.5 g/dL (6.4-8.3)
[2017-01-17] MEDS: Effexor 37.5 MG TAB GT SCH ×2 (09:04→23:25)
[2017-01-17] MEDS: FAMOTIDINE 20 MG TABLET GT SCH ×2 (09:04→23:25)
[2017-01-17] MEDS: LACTOBACILLUS RHAMNOSUS GG 1 CAP CAPSULE GT SCH ×2 (09:04→23:25)
[2017-01-17] MEDS: ASCORBIC ACID 500 MG TABLET GT SCH (09:04)
[2017-01-17] MEDS: NITROFURANTOIN MONOHYD/M-CRYST 100 MG CAPSULE PO SCH ×2 (09:04→23:30)
[2017-01-17] MEDS: MULTIVITS,CA,MINERALS/IRON/FA 1 TABLET GT SCH (09:04)
[2017-01-17] MEDS: DOCUSATE SODIUM 100 MG CAPSULE PO SCH ×2 (09:04→23:25)
[2017-01-17] MEDS: BALSAM PERU/CASTOR OIL 60 GM OINT...G. TP SCH (09:05)
[2017-01-17] MEDS: DILTIAZEM HCL 120 MG CAP.SR.24H PO SCH (09:07)
[2017-01-17] MEDS: HEPARIN SODIUM,PORCINE 5000 UNITS/ML VIAL SUBCUT SCH ×2 (09:11→23:31)
[2017-01-17] MEDS ORDERED: methylPREDNISolone SOD SUCC/PF 62.5 MG/ML VIAL IV ONE (10:45)
[2017-01-17] MEDS ORDERED: COMMUNICATION ORDER XX ONE (10:45)
[2017-01-17 18:37] LABS: BILIRUBIN,URINE NEGATIVE (NEGATIVE); BLOOD, URINE 1+ (NEGATIVE); CLARITY/URINE SL HAZY (CLEAR); COLOR,URINE YELLOW (YELLOW); GLUCOSE,URINE 1+ (NEGATIVE); KETONES,URINE NEGATIVE (NEGATIVE); LEUKOCYTE ESTERASE ,URINE NEGATIVE (NEGATIVE); NITRITE, URINE NEGATIVE (NEGATIVE); PROTEIN URINE 1+ (NEGATIVE); UROBILINOGEN,URINE 0.2 (0.2-1.0)
[2017-01-17 18:52] LABS: BACTERIA,URINE FEW /HPF (None Seen)
[2017-01-17 18:53] LABS: COARSE GRANULAR CASTS,URINE 0-10 /LPF (None Seen); MUCUS,URINE 1+ /LPF (None Seen)
[2017-01-17] MEDS: ALPRAZolam 0.25 MG TABLET GT PRN (20:08)
[2017-01-17 21:40] LABS: BASOPHILS % (AUTO) 0.1 % (0.0-2.0); EOSINOPHILS % (AUTO) 0.2 % (0.0-4.0); HEMOGLOBIN 8.2 g/dL (12.0-16.0); LYMPHOCYTES # (AUTO) 0.1 K/uL (1.0-5.5); LYMPHOCYTES % (AUTO) 4.9 % (20.5-51.5); MEAN CORPUSCULAR HEMOGLOBIN 31 pg (27-31); MEAN CORPUSCULAR HGB CONC 33 % (32-36); MEAN CORPUSCULAR VOLUME 95 fL (79.0-98.0); MONOCYTES % (AUTO) 0.6 % (1.7-9.3); NEUTROPHILS # (AUTO) 2.9 K/uL (1.8-7.7); NEUTROPHILS % (AUTO) 94.2 % (40.0-70.0); PLATELET COUNT (AUTO) 177 K/uL (130-430); RED BLOOD CELL COUNT(AUTO) 2.63 MIL/uL (4.2-6.2); RED CELL DISTRIBUTION WIDTH 13.5 % (9.0-15.0)
[2017-01-18] VITALS (7 sets, daily range): BP systolic 125–153
[2017-01-18] MEDS: methylPREDNISolone SOD SUCC/PF 62.5 MG/ML VIAL IVP SCH ×5 (01:16→23:35)
[2017-01-18] MEDS: IPRATROPIUM BROM 0.5 MG/2.5 ML VIAL.NEB (ATROVENT) INH SCH ×4 (01:35→21:32)
[2017-01-18] MEDS: LevALBUTEROL HCL 1.25 MG/0.5 ML *CONC.* VIAL.NEB (XOPENEX CONC.) INH SCH ×4 (01:35→21:32)
[2017-01-18] MEDS: CARBIDOPA/LEVODOPA 25/100 MG TABLET GT SCH ×5 (05:48→22:12)
[2017-01-18] MEDS: MORPHINE 2 MG/ML INJ. SYRINGE IVP PRN ×3 (06:02→21:29)
[2017-01-18 07:48] LABS: CALCIUM 9.5 mg/dL (8.4-11.0); CREATININE 2.44 mg/dL (0.55-1.30)
[2017-01-18] MEDS: ALPRAZolam 0.25 MG TABLET GT PRN (07:58)
[2017-01-18] MEDS: LACTOBACILLUS RHAMNOSUS GG 1 CAP CAPSULE GT SCH ×2 (09:03→21:27)
[2017-01-18] MEDS: MULTIVITS,CA,MINERALS/IRON/FA 1 TABLET GT SCH (09:03)
[2017-01-18] MEDS: ASCORBIC ACID 500 MG TABLET GT SCH (09:04)
[2017-01-18] MEDS: ALPRAZolam 0.25 MG TABLET PO SCH ×4 (09:04→21:26)
[2017-01-18] MEDS: DOCUSATE SODIUM 100 MG CAPSULE PO SCH ×2 (09:05→21:26)
[2017-01-18] MEDS: NITROFURANTOIN MONOHYD/M-CRYST 100 MG CAPSULE PO SCH ×2 (09:05→21:27)
[2017-01-18] MEDS: DILTIAZEM HCL 120 MG CAP.SR.24H PO SCH (09:05)
[2017-01-18] MEDS: FAMOTIDINE 20 MG TABLET GT SCH ×2 (09:05→21:26)
[2017-01-18] MEDS: Effexor 37.5 MG TAB GT SCH ×2 (09:05→21:27)
[2017-01-18] MEDS: BACLOFEN 10 MG TABLET GT PRN (09:06)
[2017-01-18] MEDS: BALSAM PERU/CASTOR OIL 60 GM OINT...G. TP SCH (09:07)
[2017-01-18] MEDS: HEPARIN SODIUM,PORCINE 5000 UNITS/ML VIAL SUBCUT SCH ×2 (09:35→21:31)
[2017-01-18] MEDS: 0.45% NACL 1,000 ML IV SCH (15:14)
[2017-01-19 00:37] VITALS: BP_SYST 134
[2017-01-19] MEDS: LevALBUTEROL HCL 1.25 MG/0.5 ML *CONC.* VIAL.NEB (XOPENEX CONC.) INH SCH ×4 (01:56→19:58)
[2017-01-19] MEDS: IPRATROPIUM BROM 0.5 MG/2.5 ML VIAL.NEB (ATROVENT) INH SCH ×4 (01:56→19:58)
[2017-01-19 04:10] VITALS: BP_SYST 131
[2017-01-19] MEDS: CARBIDOPA/LEVODOPA 25/100 MG TABLET GT SCH ×5 (05:11→23:20)
[2017-01-19] MEDS: methylPREDNISolone SOD SUCC/PF 62.5 MG/ML VIAL IVP SCH ×4 (06:04→23:18)
[2017-01-19 07:23] LABS: HEMATOCRIT 23.7 % (36-48); HEMOGLOBIN 7.8 g/dL (12.0-16.0); LYMPHOCYTES # (AUTO) 0.1 K/uL (1.0-5.5); MEAN CORPUSCULAR HEMOGLOBIN 32 pg (27-31); MEAN CORPUSCULAR HGB CONC 33 % (32-36); MEAN CORPUSCULAR VOLUME 97 fL (79.0-98.0); MONOCYTES % (AUTO) 1.4 % (1.7-9.3); NEUTROPHILS # (AUTO) 3.3 K/uL (1.8-7.7); NEUTROPHILS % (AUTO) 94.6 % (40.0-70.0); PLATELET COUNT (AUTO) 192 K/uL (130-430); RED BLOOD CELL COUNT(AUTO) 2.45 MIL/uL (4.2-6.2); RED CELL DISTRIBUTION WIDTH 13.6 % (9.0-15.0); WHITE BLOOD COUNT (AUTO) 3.4 K/uL (4.8-10.8)
[2017-01-19 07:28] LABS: CREATININE 2.39 mg/dL (0.55-1.30); POTASSIUM 3.3 mmol/L (3.5-5.1)
[2017-01-19] MEDS: NITROFURANTOIN MONOHYD/M-CRYST 100 MG CAPSULE PO SCH ×2 (10:49→23:19)
[2017-01-19] MEDS: DOCUSATE SODIUM 100 MG CAPSULE PO SCH ×2 (10:49→23:18)
[2017-01-19] MEDS: LACTOBACILLUS RHAMNOSUS GG 1 CAP CAPSULE GT SCH ×2 (10:49→23:20)
[2017-01-19] MEDS: BACLOFEN 10 MG TABLET GT PRN (10:50)
[2017-01-19] MEDS: ASCORBIC ACID 500 MG TABLET GT SCH (10:50)
[2017-01-19] MEDS: Effexor 37.5 MG TAB GT SCH ×2 (10:50→23:19)
[2017-01-19] MEDS: FAMOTIDINE 20 MG TABLET GT SCH ×2 (10:50→23:19)
[2017-01-19] MEDS: DILTIAZEM HCL 120 MG CAP.SR.24H PO SCH (10:51)
[2017-01-19] MEDS: MULTIVITS,CA,MINERALS/IRON/FA 1 TABLET GT SCH (10:51)
[2017-01-19] MEDS: ALPRAZolam 0.25 MG TABLET PO SCH ×3 (10:52→23:19)
[2017-01-19] MEDS: BALSAM PERU/CASTOR OIL 60 GM OINT...G. TP SCH (10:53)
[2017-01-19] MEDS: HEPARIN SODIUM,PORCINE 5000 UNITS/ML VIAL SUBCUT SCH ×2 (10:55→23:22)
[2017-01-19] MEDS: MORPHINE 2 MG/ML INJ. SYRINGE IVP PRN ×2 (11:00→23:21)
[2017-01-19] MEDS: 0.45% NACL 1,000 ML IV SCH (11:01)
[2017-01-19 12:12] VITALS: BP_SYST 137
[2017-01-19] MEDS: LACTULOSE 20 GM/30 ML UDC GT PRN ×2 (15:18→15:20)
[2017-01-19 16:12] VITALS: BP_SYST 130
[2017-01-19 20:00] VITALS: BP_SYST 132
[2017-01-19] MEDS ORDERED: EPOETIN ALFA 10,000 UNITS/ML VIAL SUBCUT ONE (22:00)
[2017-01-19 23:05] VITALS: BP_SYST 127
[2017-01-20] MEDS: LevALBUTEROL HCL 1.25 MG/0.5 ML *CONC.* VIAL.NEB (XOPENEX CONC.) INH SCH ×4 (00:25→20:03)
[2017-01-20 06:26] VITALS: BP_SYST 133
[2017-01-20 06:37] LABS: HEMOGLOBIN 7.8 g/dL (12.0-16.0); LYMPHOCYTES # (AUTO) 0.1 K/uL (1.0-5.5); LYMPHOCYTES % (AUTO) 4.3 % (20.5-51.5); MEAN CORPUSCULAR HEMOGLOBIN 31 pg (27-31); MEAN CORPUSCULAR HGB CONC 33 % (32-36); MEAN CORPUSCULAR VOLUME 96 fL (79.0-98.0); MONOCYTES # (AUTO) 0.1 K/uL (0.0-1.0); NEUTROPHILS # (AUTO) 2.8 K/uL (1.8-7.7); NEUTROPHILS % (AUTO) 93.7 % (40.0-70.0); PLATELET COUNT (AUTO) 192 K/uL (130-430); RED BLOOD CELL COUNT(AUTO) 2.49 MIL/uL (4.2-6.2); RED CELL DISTRIBUTION WIDTH 13.4 % (9.0-15.0)
[2017-01-20 06:42] LABS: ALBUMIN 2.9 g/dL (3.4-4.8); CALCIUM 8.7 mg/dL (8.4-11.0); CREATININE 2.3 mg/dL (0.55-1.30); POTASSIUM 3.4 mmol/L (3.5-5.1); TOTAL BILIRUBIN 0.2 mg/dL (0.0-1.0)
[2017-01-20] MEDS: IPRATROPIUM BROM 0.5 MG/2.5 ML VIAL.NEB (ATROVENT) INH SCH ×3 (07:26→20:03)
[2017-01-20] MEDS: CARBIDOPA/LEVODOPA 25/100 MG TABLET GT SCH ×5 (07:37→21:11)
[2017-01-20] MEDS: methylPREDNISolone SOD SUCC/PF 62.5 MG/ML VIAL IVP SCH ×3 (07:37→18:08)
[2017-01-20] MEDS: 0.45% NACL 1,000 ML IV SCH (07:37)
[2017-01-20 08:11] VITALS: BP_SYST 109
[2017-01-20] MEDS: DOCUSATE SODIUM 100 MG CAPSULE PO SCH ×2 (09:17→21:12)
[2017-01-20] MEDS: NITROFURANTOIN MONOHYD/M-CRYST 100 MG CAPSULE PO SCH ×2 (09:17→21:15)
[2017-01-20] MEDS: ASCORBIC ACID 500 MG TABLET GT SCH (09:17)
[2017-01-20] MEDS: LACTOBACILLUS RHAMNOSUS GG 1 CAP CAPSULE GT SCH ×2 (09:17→21:10)
[2017-01-20] MEDS: FAMOTIDINE 20 MG TABLET GT SCH ×2 (09:17→21:11)
[2017-01-20] MEDS: DILTIAZEM HCL 120 MG CAP.SR.24H PO SCH (09:18)
[2017-01-20] MEDS: MULTIVITS,CA,MINERALS/IRON/FA 1 TABLET GT SCH (09:18)
[2017-01-20] MEDS: Effexor 37.5 MG TAB GT SCH ×2 (09:18→21:11)
[2017-01-20] MEDS: ALPRAZolam 0.25 MG TABLET PO SCH ×3 (09:19→21:11)
[2017-01-20] MEDS: HEPARIN SODIUM,PORCINE 5000 UNITS/ML VIAL SUBCUT SCH ×2 (09:20→21:13)
[2017-01-20] MEDS: BALSAM PERU/CASTOR OIL 60 GM OINT...G. TP SCH (09:21)
[2017-01-20] MEDS ORDERED: POTASSIUM CHLORIDE 20 MEQ/PKT PACKET PO ONE (09:45)
[2017-01-20] MEDS: MORPHINE 2 MG/ML INJ. SYRINGE IVP PRN (10:04)
[2017-01-20 12:26] VITALS: BP_SYST 141
[2017-01-20 16:20] VITALS: BP_SYST 130
[2017-01-20 17:00] VITALS: BP_SYST 141
[2017-01-20 20:04] VITALS: BP_SYST 133
[2017-01-21] MEDS: methylPREDNISolone SOD SUCC/PF 62.5 MG/ML VIAL IVP SCH ×5 (00:07→23:08)
[2017-01-21] MEDS: 0.45% NACL 1,000 ML IV SCH (00:09)
[2017-01-21 00:20] VITALS: BP_SYST 137
[2017-01-21] MEDS: IPRATROPIUM BROM 0.5 MG/2.5 ML VIAL.NEB (ATROVENT) INH SCH ×4 (01:38→19:54)
[2017-01-21] MEDS: LevALBUTEROL HCL 1.25 MG/0.5 ML *CONC.* VIAL.NEB (XOPENEX CONC.) INH SCH ×4 (01:38→19:54)
[2017-01-21 04:46] VITALS: BP_SYST 145
[2017-01-21 06:43] LABS: EOSINOPHILS % (AUTO) 0.1 % (0.0-4.0); HEMATOCRIT 24.1 % (36-48); LYMPHOCYTES # (AUTO) 0.1 K/uL (1.0-5.5); LYMPHOCYTES % (AUTO) 3.6 % (20.5-51.5); MEAN CORPUSCULAR HEMOGLOBIN 32 pg (27-31); MEAN CORPUSCULAR HGB CONC 33 % (32-36); MEAN CORPUSCULAR VOLUME 96 fL (79.0-98.0); MONOCYTES % (AUTO) 1.3 % (1.7-9.3); NEUTROPHILS # (AUTO) 2.8 K/uL (1.8-7.7); PLATELET COUNT (AUTO) 199 K/uL (130-430); RED BLOOD CELL COUNT(AUTO) 2.51 MIL/uL (4.2-6.2); RED CELL DISTRIBUTION WIDTH 13.4 % (9.0-15.0); WHITE BLOOD COUNT (AUTO) 2.9 K/uL (4.8-10.8)
[2017-01-21] MEDS: CARBIDOPA/LEVODOPA 25/100 MG TABLET GT SCH ×5 (06:44→23:09)
[2017-01-21 06:56] LABS: CALCIUM 8.5 mg/dL (8.4-11.0); CREATININE 2.06 mg/dL (0.55-1.30); POTASSIUM 3.3 mmol/L (3.5-5.1)
[2017-01-21 10:18] VITALS: BP_SYST 141
[2017-01-21] MEDS: Effexor 37.5 MG TAB GT SCH ×2 (11:48→23:10)
[2017-01-21] MEDS: NITROFURANTOIN MONOHYD/M-CRYST 100 MG CAPSULE PO SCH ×2 (11:49→23:21)
[2017-01-21] MEDS: ASCORBIC ACID 500 MG TABLET GT SCH (11:50)
[2017-01-21] MEDS: LACTOBACILLUS RHAMNOSUS GG 1 CAP CAPSULE GT SCH ×2 (11:50→23:09)
[2017-01-21] MEDS: DILTIAZEM HCL 120 MG CAP.SR.24H PO SCH (11:50)
[2017-01-21] MEDS: FAMOTIDINE 20 MG TABLET GT SCH ×2 (11:50→23:09)
[2017-01-21] MEDS: ALPRAZolam 0.25 MG TABLET PO SCH ×3 (11:51→23:10)
[2017-01-21] MEDS: MULTIVITS,CA,MINERALS/IRON/FA 1 TABLET GT SCH (11:51)
[2017-01-21] MEDS: DOCUSATE SODIUM 100 MG CAPSULE PO SCH ×2 (11:51→23:08)
[2017-01-21] MEDS: HEPARIN SODIUM,PORCINE 5000 UNITS/ML VIAL SUBCUT SCH ×2 (11:56→23:13)
[2017-01-21] MEDS: BALSAM PERU/CASTOR OIL 60 GM OINT...G. TP SCH (12:02)
[2017-01-21 12:46] VITALS: BP_SYST 147
[2017-01-21 16:30] VITALS: BP_SYST 139
[2017-01-21 20:28] VITALS: BP_SYST 135
[2017-01-21] MEDS: BACLOFEN 10 MG TABLET GT PRN (23:10)
[2017-01-22] VITALS (7 sets, daily range): BP systolic 112–151
[2017-01-22] MEDS: IPRATROPIUM BROM 0.5 MG/2.5 ML VIAL.NEB (ATROVENT) INH SCH ×4 (01:06→19:15)
[2017-01-22] MEDS: LevALBUTEROL HCL 1.25 MG/0.5 ML *CONC.* VIAL.NEB (XOPENEX CONC.) INH SCH ×4 (01:06→19:15)
[2017-01-22] MEDS: methylPREDNISolone SOD SUCC/PF 62.5 MG/ML VIAL IVP SCH ×3 (06:50→18:58)
[2017-01-22] MEDS: CARBIDOPA/LEVODOPA 25/100 MG TABLET GT SCH ×4 (06:50→21:21)
[2017-01-22 07:57] LABS: HEMATOCRIT 25.9 % (36-48); HEMOGLOBIN 8.5 g/dL (12.0-16.0); LYMPHOCYTES # (AUTO) 0.2 K/uL (1.0-5.5); LYMPHOCYTES % (AUTO) 4.2 % (20.5-51.5); MEAN CORPUSCULAR HEMOGLOBIN 32 pg (27-31); MEAN CORPUSCULAR HGB CONC 33 % (32-36); MEAN CORPUSCULAR VOLUME 97 fL (79.0-98.0); MONOCYTES # (AUTO) 0.1 K/uL (0.0-1.0); MONOCYTES % (AUTO) 2.9 % (1.7-9.3); NEUTROPHILS # (AUTO) 3.8 K/uL (1.8-7.7); NEUTROPHILS % (AUTO) 92.9 % (40.0-70.0); PLATELET COUNT (AUTO) 215 K/uL (130-430); RED BLOOD CELL COUNT(AUTO) 2.68 MIL/uL (4.2-6.2); RED CELL DISTRIBUTION WIDTH 13.4 % (9.0-15.0)
[2017-01-22 08:03] LABS: ALBUMIN 3.1 g/dL (3.4-4.8); CALCIUM 8.8 mg/dL (8.4-11.0); CREATININE 2.04 mg/dL (0.55-1.30); POTASSIUM 3.1 mmol/L (3.5-5.1); TOTAL BILIRUBIN 0.3 mg/dL (0.0-1.0); TOTAL PROTEIN, SERUM 6.3 g/dL (6.4-8.3)
[2017-01-22 08:06] LABS: WHITE BLOOD COUNT (AUTO) 4.1 K/uL (4.8-10.8)
[2017-01-22] MEDS: NITROFURANTOIN MONOHYD/M-CRYST 100 MG CAPSULE PO SCH ×2 (09:00→21:21)
[2017-01-22] MEDS ORDERED: POTASSIUM CHLORIDE 20 MEQ/PKT PACKET PO ONE (09:45)
[2017-01-22] MEDS: MULTIVITS,CA,MINERALS/IRON/FA 1 TABLET GT SCH (10:31)
[2017-01-22] MEDS: DOCUSATE SODIUM 100 MG CAPSULE PO SCH ×2 (10:32→21:21)
[2017-01-22] MEDS: LACTOBACILLUS RHAMNOSUS GG 1 CAP CAPSULE GT SCH ×2 (10:32→21:22)
[2017-01-22] MEDS: FAMOTIDINE 20 MG TABLET GT SCH ×2 (10:32→21:23)
[2017-01-22] MEDS: ALPRAZolam 0.25 MG TABLET PO SCH ×3 (10:34→21:23)
[2017-01-22] MEDS: ASCORBIC ACID 500 MG TABLET GT SCH (10:34)
[2017-01-22] MEDS: Effexor 37.5 MG TAB GT SCH ×2 (10:35→21:21)
[2017-01-22] MEDS: DILTIAZEM HCL 120 MG CAP.SR.24H PO SCH (10:35)
[2017-01-22] MEDS: HEPARIN SODIUM,PORCINE 5000 UNITS/ML VIAL SUBCUT SCH ×2 (10:40→21:26)
[2017-01-22] MEDS: BALSAM PERU/CASTOR OIL 60 GM OINT...G. TP SCH (10:41)
[2017-01-22] MEDS: 0.45% NACL 1,000 ML IV SCH (18:59)
[2017-01-22] MEDS: MORPHINE 2 MG/ML INJ. SYRINGE IVP PRN (21:24)
[2017-01-23 06:02] LABS: FOLATE (FOLIC ACID) 11.4 ng/mL (>3.0)
[2017-01-23 12:25] LABS: HEPATITIS B SURFACE AG Negative (Negative); HEPATITIS C VIRUS AB <0.1 s/co ratio (0.0-0.9)
== END 2017-01-22 23:30 | DRG 460 ==
LOC: SED 19:33 → SMU 01-05
PROVIDERS: ADMIT Internal Medicine; ATTEND Internal Medicine
PROC: 0DH63UZ Insertion of Feeding Device into Stomach, Percutaneous Approach (ICD-10-PCS; principal; 2017-01-13 07:30)
DX: N17.0 Acute kidney failure with tubular necrosis (principal); E43 Unspecified severe protein-calorie malnutrition; L89.159 Pressure ulcer of sacral region, unspecified stage; N39.0 Urinary tract infection, site not specified; G20 Parkinson's disease; J44.9 Chronic obstructive pulmonary disease, unspecified; R13.10 Dysphagia, unspecified; F02.80 Dementia in other diseases classified elsewhere, unspecified severity, without behavioral disturbance, psychotic disturbance, mood disturbance, and anxiety; E87.1 Hypo-osmolality and hyponatremia; N18.3 Chronic kidney disease, stage 3 (moderate); D72.819 Decreased white blood cell count, unspecified; N31.9 Neuromuscular dysfunction of bladder, unspecified; R62.7 Adult failure to thrive; I12.9 Hypertensive chronic kidney disease with stage 1 through stage 4 chronic kidney disease, or unspecified chronic kidney disease; F41.9 Anxiety disorder, unspecified; D64.9 Anemia, unspecified; M19.90 Unspecified osteoarthritis, unspecified site; B96.5 Pseudomonas (aeruginosa) (mallei) (pseudomallei) as the cause of diseases classified elsewhere; B95.62 Methicillin resistant Staphylococcus aureus infection as the cause of diseases classified elsewhere; E78.5 Hyperlipidemia, unspecified; E86.0 Dehydration; Z88.6 Allergy status to analgesic agent; Z79.899 Other long term (current) drug therapy; Z74.01 Bed confinement status; Z68.1 Body mass index [BMI] 19.9 or less, adult
CPT/HCPCS: 36415; 43246; 70450-TC; 71010; 76770; 80048; 80053; 80202-TC; 80307; 81000-TC; 82607; 82728; 82746; 82962; 83540-TC; 83605; 83880; 84484; 85007; 85025; 85027; 85610-TC; 85730-TC; 86308-TC; 86803; 87040-TC; 87081; 87086; 87186-TC; 87340; 93005; 94640; 94760; 96360; 96361; 99285; A5061; J0690; J0692; J0770; J0885; J1644; J2250; J2270; J2930; J3010; J3370; J7030; J7040; J7050; J7060

== ENCOUNTER 2017-03-06 21:45 | Emergency (ER) | payer MEDICARE, MEDICAID ==
[~2017-03-06] VITALS: Ht 154.9 cm; Wt 45.4 kg
[2017-03-06 21:45] VITALS: BP_SYST 87
[~2017-03-06 21:45] MED LIST: ACET-2165 PO; ALPR0.2583 GT; ASCO500T20 PO; BACL10TA PO; CARB1TAB21 PO; DILT120C89 PO; DOCU-144 PO; DULR10 RC; FAMO20TA8 GT; HEPA500014 SUBCUT; HYDR-4037 GT; IBUP-1969 GT; LACT10SO66 GT; MAGN400O4 GT; MULT-300 PO; PIMA17TA PO; ROPI4TAB3 GT; VENL75CA GT
[2017-03-06] MEDS ORDERED: NACL 0.9% 1,000 ML IV SCH (23:15)
[2017-03-06] MEDS ORDERED: FERR-57 GT (23:18)
[2017-03-06] MEDS ORDERED: FER300L GT (23:18)
[2017-03-06] MEDS ORDERED: PIMA17TA GT (23:18)
[2017-03-06] MEDS ORDERED: MULT-1089 GT (23:18)
[2017-03-06 23:32] LABS: CREATININE 1.32 mg/dL (0.55-1.30); POTASSIUM 4.8 mmol/L (3.5-5.1)
[2017-03-06 23:34] LABS: BASOPHILS % (AUTO) 0.5 % (0.0-2.0); EOSINOPHILS # (AUTO) 0.1 K/uL (0.0-0.4); EOSINOPHILS % (AUTO) 1.5 % (0.0-4.0); HEMATOCRIT 22.4 % (36-48); HEMOGLOBIN 7.7 g/dL (12.0-16.0); LYMPHOCYTES % (AUTO) 10.7 % (20.5-51.5); MEAN CORPUSCULAR HEMOGLOBIN 33 pg (27-31); MEAN CORPUSCULAR HGB CONC 34 % (32-36); MEAN CORPUSCULAR VOLUME 95 fL (79.0-98.0); MONOCYTES # (AUTO) 0.4 K/uL (0.0-1.0); MONOCYTES % (AUTO) 4.6 % (1.7-9.3); NEUTROPHILS # (AUTO) 8.1 K/uL (1.8-7.7); NEUTROPHILS % (AUTO) 82.7 % (40.0-70.0); PLATELET COUNT (AUTO) 367 K/uL (130-430); RED BLOOD CELL COUNT(AUTO) 2.36 MIL/uL (4.2-6.2); RED CELL DISTRIBUTION WIDTH 13.2 % (9.0-15.0); WHITE BLOOD COUNT (AUTO) 9.6 K/uL (4.8-10.8)
[2017-03-06 23:36] LABS: ALBUMIN 2.9 g/dL (3.4-4.8); TOTAL BILIRUBIN 0.3 mg/dL (0.0-1.0)
[2017-03-06 23:37] LABS: PROTHROMBIN TIME 10.9 SECS (9.5-12.5)
[2017-03-07 00:35] LABS: CLARITY/URINE SL CLOUDY (CLEAR); COLOR,URINE YELLOW (YELLOW); PH,URINE 6.5 (5.0-8.0)
[2017-03-07 00:36] LABS: BILIRUBIN,URINE NEGATIVE (NEGATIVE); BLOOD, URINE TRACE (NEGATIVE); GLUCOSE,URINE NEGATIVE (NEGATIVE); KETONES,URINE NEGATIVE (NEGATIVE); LEUKOCYTE ESTERASE ,URINE 3+ (NEGATIVE); NITRITE, URINE POSITIVE (NEGATIVE); PROTEIN URINE NEGATIVE (NEGATIVE); UROBILINOGEN,URINE 0.2 (0.2-1.0)
[2017-03-07 00:38] LABS: BACTERIA,URINE MODERATE /HPF (None Seen); MUCUS,URINE None Seen /LPF (None Seen); WBC,URINE >100 /HPF (0-3)
[2017-03-07 02:31] VITALS: BP_SYST 115
== END 2017-03-07 02:31 | disposition home or self-care (01) ==
LOC: SED 21:45
DX: R79.9 Abnormal finding of blood chemistry, unspecified (principal); D64.9 Anemia, unspecified; J44.9 Chronic obstructive pulmonary disease, unspecified; G20 Parkinson's disease; Z79.899 Other long term (current) drug therapy
CPT/HCPCS: 36415; 71010; 80053; 81000; 83605; 84484; 85025; 85610; 85730; 87040; 87081; 87086; 87186; 93005; 96360; 99285; J7030